=== PATIENT | male | born 1985 | race Caucasian/White ===

== ENCOUNTER 2019-03-28 09:00 | Inpatient (IN) | payer SELFPAY ==
[~2019-03-28] VITALS: Ht 193 cm; Wt 95.1 kg
--- NOTE | 2019-03-28 09:51 | REP ---
CT brain: 03/28/2019. Indication: Acute mental status change. Stroke. Comparison: None. Findings: There is no acute intracranial hemorrhage, acute cortical infarction, mass effect or hydrocephalous. Impression: No acute intracranial process. Electronically Signed by Fco Page DO 03/28/2019 09:42 A
[2019-03-28 10:08] LABS: BASO # 0.1 10^3/uL (0.0-0.2); BASO % 0.8 % (0.0-1.0); EOS # 0.1 10^3/uL (0.0-0.5); EOS % 2.3 % (0.0-3.0); HEMATOCRIT 49.8 % (42.0-52.0); HEMOGLOBIN 17.2 g/dl (13.5-17.5); LYMPH # 1.5 10^3/uL (1.5-5.0); LYMPH % 24.3 % (24.0-44.0); MEAN CORPUSCULAR HGB CONC 34.5 g/dl (32.0-36.5); MEAN CORPUSCULAR VOLUME 86.8 fl (80.0-96.0); MONO # 0.5 10^3/uL (0.0-0.8); NEUTROPHILS # 3.8 10^3/uL (1.5-8.5); NEUTROPHILS % 63.1 % (36.0-66.0); PLATELET COUNT, AUTOMATED 266 10^3/uL (150-450); RED BLOOD COUNT 5.74 10^6/uL (4.30-6.10)
[2019-03-28 10:37] LABS: AMPHETAMINES LEVEL URINE NEGATIVE (NEGATIVE); BARBITURATES URINE NEGATIVE (NEGATIVE); BENZODIAZEPINES URINE NEGATIVE (NEGATIVE); CANNABINOIDS URINE NEGATIVE (NEGATIVE); COCAINE METABOLITE URINE NEGATIVE (NEGATIVE); METHADONE URINE NEGATIVE (NEGATIVE); OPIATES URINE NEGATIVE (NEGATIVE); PHENCYCLIDINE URINE NEGATIVE (NEGATIVE)
[2019-03-28 10:50] LABS: ACETAMINOPHEN LEVEL < 2.0 UG/ML (10.0-30.0); ALBUMIN 4.3 GM/DL (3.2-5.2); ALT/SGPT 23 U/L (12-78); BILIRUBIN,DIRECT 0.2 MG/DL (0.0-0.2); BILIRUBIN,TOTAL 0.7 MG/DL (0.2-1.0); BLOOD UREA NITROGEN 8 MG/DL (7-18); CARBON DIOXIDE LEVEL 26 MEQ/L (21-32); CHLORIDE LEVEL 108 MEQ/L (98-107); CPK CREATINE PHOSPHOKINASE 175 U/L (39-308); CREATININE FOR GFR 1.23 MG/DL (0.70-1.30); ETHYL ALCOHOL (ETHANOL) < 0.003 % (0.000-0.010); GLOMERULAR FILTRATION RATE > 60.0 (>60); GLUCOSE, FASTING 90 MG/DL (70-100); POTASSIUM SERUM 4.1 MEQ/L (3.5-5.1); SALICYLATE LEVEL < 1.7 MG/DL (5.0-30.0); SODIUM LEVEL 140 MEQ/L (136-145); THYROID STIMULATING HORMONE 0.703 uIU/ML (0.358-3.740); TOTAL PROTEIN 7.5 GM/DL (6.4-8.2)
[2019-03-28] MEDS ORDERED: OLANZapine ORAL DISINTEGRATING TAB 5MG PO ONE (12:15)
[2019-03-28] MEDS ORDERED: HALOPERIDOL 10 MG TAB PO STA (14:01)
[2019-03-28] MEDS ORDERED: MAALOX 30 ML SUSP *UDC PO PRN (14:30)
[2019-03-28] MEDS ORDERED: traZODone 50 MG TAB PO PRN (14:30)
[2019-03-28] MEDS ORDERED: MOM 30ML SUSPENSION UDC PO PRN (14:30)
[2019-03-28] MEDS ORDERED: ACETAMINOPHEN TAB 650MG DOSE (2X325MG) PO PRN (14:30)
[2019-03-28 15:34] VITALS: BP 134/90
[2019-03-29 06:29] VITALS: BP 122/64
--- NOTE | 2019-03-29 13:03 | HPEPDOC ---
[facility] Medical History & Physical Date of Admission Mar 28, 2019 Date of Service: Mar 29, 2019 History and Physical CHIEF COMPLAINT: HISTORY OF PRESENT ILLNESS: Patient is 33M with PMH bipolar disorder per documentation admitted to [facility] with concerns for kelley episode. Patient himself reported that he is going through a lot at home but has no suicidal ideation or significant change in mental or physical status. He denies any past chronic medical problems and does not take any medications at home. He has a history of french's neuroma and has had surgery to the L. foot but otherwise no other surgical procedures. Currently denies any chest pain, SOB, fever, chills or any other physical complaints. PAST MEDICAL HISTORY: Refer to [facility] PAST SURGICAL HISTORY: L. foot surgery SOCIAL HISTORY: Social alcohol with occasional cigar. Denies drug use. FAMILY HISTORY: Parents are healthy, no known medical problems ALLERGIES: Please see below. REVIEW OF SYSTEMS: 10 point review of system negative except as stated in HPI HOME MEDICATIONS: Please see below. PHYSICAL EXAMINATION: General: No acute distress, Alert Eyes: Normal sclera, EOMI, PAMELA HENT: Atraumatic Cardiovascular: Normal rate, normal rhythm. Pulmonary: Clear to auscultation b/l, no wheezing GI: Soft, nontender, nondistended Skin: Warm and dry Neuro: CN grossly intact. No focal deficits. Strengths equal b/l. LABORATORY DATA: See below. IMAGING: Head CT- Findings: There is no acute intracranial hemorrhage, acute cortical infarction, mass effect or hydrocephalous. Impression: No acute intracranial process. MICROBIOLOGY: Please see below. ASSESSMENT AND PLAN: 1. Bipolar disorder - Evaluation and treatment per Psych. - Denies suicidal ideation at this time. - TSH acceptable. Afebrile and no acute pathology on head CT. - No medical problems requiring intervention at this time. Please call back if needed. Vital Signs Vital Signs Date Time Temp Pulse Resp B/P (MAP) Pulse Ox O2 Delivery O2 Flow Rate FiO2 03/29/19 06:29 98.3 62 12 122/64 (83) Room Air 03/28/19 15:34 98 Home Medications No Active Prescriptions or Reported Meds Allergies Coded Allergies: No Known Allergies (Unverified , 03/28/19) A-FIB/CHADSVASC A-FIB History Current/History of A-Fib/PAF?: No ERYN FOSTER MD Mar 29, 2019 13:03
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
[2019-03-29 16:13] VITALS: BP 138/90
[2019-03-30 06:30] VITALS: BP 135/90
[2019-03-30] MEDS ORDERED: INFLUENZA QUADRIVALENT PF VACCINE 0.5ML SYRINGE (90686) IM ONE (09:00)
[2019-03-30] MEDS ORDERED: TRAZ-252 PO (09:46)
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
== END 2019-03-30 11:45 | disposition home or self-care (01) | DRG 755 ==
LOC: M ED 09:00 → M ED INP 14:17 → M PSY 15:00
PROVIDERS: ADMIT Psychiatry & Neurology Addiction Medicine; ATTEND Psychiatry & Neurology Psychiatry
DX: F43.22 Adjustment disorder with anxiety (principal); F31.74 Bipolar disorder, in full remission, most recent episode manic; G57.62 Lesion of plantar nerve, left lower limb; G47.00 Insomnia, unspecified; Z56.1 Change of job